=== PATIENT | male | born 1970 | race Two or more races ===

== ENCOUNTER 2020-10-03 18:56 | Emergency (ER) | payer OTHER ==
[2020-10-03 19:07] VITALS: RESP 18; TEMP 97.7
[2020-10-03] MEDS ORDERED: HYDROcodone/APAP 5-325MG 1 EACH TAB PO STA ×2 (19:16→20:11)
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
[2020-10-03] MEDS ORDERED: CEPHALEXIN 500MG STARTER PACK 4 CAP BTL PO STA (20:31)
[2020-10-03] MEDS ORDERED: ACET/COD 300 MG/30 MG STARTER PACK 6 TAB BTL PO STA (20:32)
[2020-10-03 20:57] VITALS: BP 118/81; PULSE 87
== END 2020-10-03 21:15 | disposition home or self-care (01) ==
LOC: EC 18:56
DX: S02.40DA Maxillary fracture, left side, initial encounter for closed fracture (principal); S02.85XA Fracture of orbit, unspecified, initial encounter for closed fracture; S02.402A Zygomatic fracture, unspecified side, initial encounter for closed fracture; S02.2XXA Fracture of nasal bones, initial encounter for closed fracture; J45.909 Unspecified asthma, uncomplicated; E78.5 Hyperlipidemia, unspecified; Z79.899 Other long term (current) drug therapy; Z79.51 Long term (current) use of inhaled steroids; Y00.XXXA Assault by blunt object, initial encounter
CPT/HCPCS: 70450; 70486; 72125; 99284